=== PATIENT | female | born 1955 | race Caucasian/White ===

== ENCOUNTER → 2019-01-14 | Outpatient (CLI) | payer SELFPAY ==
--- NOTE | 2019-01-14 15:35 | US ---
LOWER EXTREMITY VENOUS INSUFFICIENCY SIDE PERFORMED: Both 1) Color flow is present and patency is documented in the following vessels. No DVT or SVT is noted . EIV Common Femoral Vein Deep Femoral Vein Femoral Vein Popliteal Vein Proximal Calf Veins Greater Saph Vein Upper Small Saph Vein -not seen on right 2) There is venous reflux noted at the following venous levels: There may be some minimal reflux right EIV, CFV IMPRESSION: No sonographic evidence of deep venous thrombosis nor superficial venous thrombosis in th e bilateral lower extremities. Minimal venous reflux within the right external iliac vein and common femoral vein. Note the upper small saphenous vein is not visualized on the right.
--- NOTE | 2019-01-21 11:11 | P.ARTDOP ---
Arterial Doppler LOWER EXTREMITY ARTERIAL DOPPLER: DATE OF SERVICE: 01/14/2019 Reason for study: Right foot ulcer with diabetes. Doppler waveforms: Multiphasic throughout on the left. Multiphasic at the right femoral and atypical below. Pulse volume recording: Blunted distally on the right. Pressure gradients: Across the knee and at the toe level. Ankle-brachial indices: 0.63 on the right and greater than 1 on the left. Toe pressures: 48 on the right, 117 on the left Impression: Normal left side. Moderate right fem-pop disease. Probably adequ ate circulatory status for healing but clinical correlation recommended..
== END | disposition home or self-care (01) ==
LOC: RADUSWWP 13:45
PROVIDERS: ATTEND Family Medicine
DX: I87.8 Other specified disorders of veins (principal); E11.621 Type 2 diabetes mellitus with foot ulcer
CPT/HCPCS: 93923; 93970

== ENCOUNTER 2019-01-16 06:11 | Day surgery (SDC) | payer SELFPAY ==
[2019-01-15 10:55] VITALS: BMI 30.6
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
[~2019-01-16 06:11] MED LIST: DEXAMETHASONE SOD PHOSPHATE 10 MG/ML 1 ML VIAL IV ONE; HYDROmorphone 0.5 MG/0.5 ML SYRINGE IVP PRN; LACTATED RINGERS 1,000 ML IV SCH; ONDANSETRON 4 MG/2 ML VIAL IVP ONE
[2019-01-16 06:57] VITALS: RESP 16; TEMP 98.3
[2019-01-16 07:18] LABS: Glucose,Whole Blood 160 mg/dL (75-99)
[2019-01-16] MEDS ORDERED: KETAMINE 10 MG/ML 20 ML VIAL ONE (07:35)
[2019-01-16] MEDS ORDERED: PROPOFOL 10 MG/ML 20 ML VIAL IV ONE (07:35)
[2019-01-16] MEDS ORDERED: MIDAZOLAM 2 MG/2 ML VIAL ONE (07:35)
[2019-01-16] MEDS ORDERED: fentaNYL (PF) 50 MCG/ML 2 ML AMP ONE (07:35)
--- NOTE | 2019-01-16 08:13 | P.PCN ---
Procedure(s) Performed: Date of service: 01/16/2019 Surgeon: Misael Pre-and postop diagnosis: Diabetic infection right foot including osteomyelitis distal right fifth metatarsal Type of debridement: Excisional surgical including bone Chief complaint: ulcer of lateral right forefoot Anesthesia: MAC Signs of infection: No purulence. Some nonviable eschar and soft bone Other material in the wound that is expected to inhibit healing or promote adjacent tissue breakdown: Same Degree of epithelialization: % Method and instrument: Surgical debridement with scalpel, sharp curette, rongeur Character of the wound after debridement: Clean bloody with firm residual bone Description of necrotic material present: Mushy nonviable bone eschar and nonviable soft tissue Description of tissue removed: Same Pre-debridement measurement: 1.8 x 1.3 cm and 0.4 cm in depth Postoperative debridement measurement: 2.0 x 1.7 cm and 1.2 cm in depth Specimens: culture and pathology Control of bleeding:Bleeding was easily controlled with saline moistened gauze and light pressure Post debridement dressing: Absorptive silver dry gauze and gauze roll Patient tolerated procedure well and was taken recovery area in stable condition.
[2019-01-16 08:27] VITALS: BP 110/72; PULSE 75
== END 2019-01-16 11:20 ==
LOC: OR 06:11
PROVIDERS: ATTEND Thoracic Surgery (Cardiothoracic Vascular Surgery)
DX: E11.69 Type 2 diabetes mellitus with other specified complication (principal); M86.9 Osteomyelitis, unspecified; I10 Essential (primary) hypertension; Z98.84 Bariatric surgery status; Z98.51 Tubal ligation status; I83.90 Asymptomatic varicose veins of unspecified lower extremity; Z80.1 Family history of malignant neoplasm of trachea, bronchus and lung; Z79.84 Long term (current) use of oral hypoglycemic drugs; Z79.899 Other long term (current) drug therapy
CPT/HCPCS: 88304; 84132; 87070; 87205; 87075; 87077; 87186; 11044; J2250; J1100; J0690; J2405; J3010; J2704

== ENCOUNTER → 2020-02-03 | Outpatient (CLI) | payer MEDICARE ==
--- NOTE | 2020-02-05 09:34 | MM ---
Reason for exam: screening (asymptomatic). Last mammogram was performed 8 years and 10 months ago. History: Patient is postmenopausal and history of other cancer. Physical Findings: A clinical breast exam by your physician is recommended on an annual basis and results should be correlated with mammographic findings. MG Screening Mammo w CAD Bilateral CC and MLO view(s) were taken. Prior study comparison: March 21, 2011, bilateral digital screening mammo w/CAD. March 07, 2010, bilateral digital screening mammogram. There are scattered fibroglandular densities. No significant changes when compared with prior studies. ASSESSMENT: Negative, BI-RAD 1 RECOMMENDATION: Routine screening mammogram of both breasts in 1 year.
--- NOTE | 2020-02-08 18:27 | BD ---
EXAMINATION TYPE: Axial Bone Density DATE OF EXAM: 02/03/2020 COMPARISON: NONE CLINICAL HISTORY: 64 YR OLD FEMALE....ICD-10 CODE: Z78.0 TERESA Height: 63.8 Weight: 184 FRAX RISK QUESTIONS: History of Fracture in Adulthood: YES RISK FACTORS HISTORY OF: LT ANKLE ..>40 YRS OLD History of Wrist Fracture: BOTH WRISTS When: > 40 YRS Postmenopausal woman: YES AT AGE 52 Hyperparathyroidism: NO Adrenal Insufficiency: NO MEDICATIONS: Prednisone or other steroids: STEROIDAL EYE DROPS Additional Medications: BP MED, DIABETIC MEDS, VIT D Additional History: DIABETIC AND HYPERTENSION EXAM MEASUREMENTS: Bone mineral densitometry was performed using the [employer] System. Bone mineral density as measured about the Lumbar spine is: ----- L1-L4(G/cm2): 1.475 T Score Values are as follows: ---- L1: 1.6 ----- L2: 1.6 ----- L3: 3.4 ----- L4: 2.7 ----- L1-L4: 2.5 Bone mineral density FIRST BONE DENSITY SCANN......BASELINE STUDY Bone mineral density about the R hip (g/cm2): 0.805 Bone mineral density about the L hip (g/cm2): 0.877 T Score values are as follows: -----R Neck: -2.0 -----L Neck: -1.8 -----R Total: -1.6 -----L Total: -1.0 Bone mineral density BASELINE STUDY FRAX%s: THERE IS A 17.2% CHANCE FOR A MAJOR OSTEOPOROTIC FX AND A 2.7% FOR HIP.....PROBABILITY FO R FX IN 10 YRS TIME IMPRESSION: Osteopenia (T Score between -2.5 and -1). There is slightly increased risk of fracture and the patient may be considered for treatment. Re-Screen 2-5 years. NOTE: T-SCORE=SD OF THE YOUNG ADULT MEAN.
== END | disposition home or self-care (01) ==
LOC: RADMAMWWP 15:43
PROVIDERS: ATTEND Family Medicine
DX: Z12.31 Encounter for screening mammogram for malignant neoplasm of breast (principal); M85.80 Other specified disorders of bone density and structure, unspecified site; Z78.0 Asymptomatic menopausal state
CPT/HCPCS: 77067; 77080